=== PATIENT | male | born 1995 | race Caucasian/White ===

== ENCOUNTER 2016-06-27 21:31 | Emergency (ER) | payer BC, MEDICAID ==
[~2016-06-27] VITALS: Ht 165.1 cm; Wt 76.0 kg
[2016-06-27 21:36] VITALS: Ht 165.1 cm; Wt 76.0 kg
[2016-06-27] MEDS ORDERED: IBUP-1542 PO (22:30)
[2016-06-27] MEDS ORDERED: LORA-441 PO (22:30)
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
== END 2016-06-27 22:54 | disposition home or self-care (01) ==
LOC: FTE 21:31
DX: F41.9 Anxiety disorder, unspecified (principal); M79.605 Pain in left leg
CPT/HCPCS: 99283

== ENCOUNTER 2016-07-30 09:53 | Emergency (ER) | payer BC ==
[~2016-07-30] VITALS: Ht 172.7 cm; Wt 90.0 kg
[~2016-07-30 09:53] MED LIST: IBUP-1542 PO; LORA-441 PO
[2016-07-30] MEDS ORDERED: LEVETIRACETAM 1000 MG (PMX) 100 ML IVPB STA (09:55)
[2016-07-30] MEDS ORDERED: LORAZEPAM 2 MG INJ IV STA (09:55)
[2016-07-30 10:09] VITALS: Ht 172.7 cm; Wt 90.0 kg
[2016-07-30 10:16] LABS: ADD SCAN DIFF NO
[2016-07-30 10:21] LABS: BASOPHILS % 0.3 % (0.0-2.0); EOSINOPHILS % 0.3 % (0.0-7.0); HEMATOCRIT 49.7 % (42.0-52.0); HEMOGLOBIN 15.9 g/dl (14.0-18.0); LYMPHOCYTES # 2.4 10^3/ul (0.8-2.9); LYMPHOCYTES % 24.2 % (15.0-51.0); MEAN CORPUSCULAR HEMOGLOBIN 30.6 pg (29.0-33.0); MEAN CORPUSCULAR VOLUME 95.6 fl (82.0-101.0); MEAN PLATELET VOLUME 9.5 fl (7.4-10.4); MONOCYTE # 0.8 10^3/ul (0.3-0.9); MONOCYTES % 7.6 % (0.0-11.0); NEUTROPHIL # 6.6 10^3/ul (1.6-7.5); NEUTROPHILS % 67.1 % (39.0-77.0); PLATELET COUNT 369 10^3/UL (140-415); RED CELL DISTRIBUTION WIDTH 13.3 % (11.5-14.5); WHITE BLOOD COUNT 9.9 10^3/ul (4.8-10.8)
[2016-07-30 10:35] LABS: POTASSIUM 3.8 mmol/L (3.5-5.1)
[2016-07-30 10:37] LABS: CREATININE 0.8 mg/dl (0.61-1.24)
[2016-07-30 10:39] LABS: CALCIUM 10.2 mg/dl (8.4-10.2)
[2016-07-30] MEDS ORDERED: LEVE-5 PO (11:48)
--- NOTE | 2016-07-30 11:51 | ERD ---
ER Documentation Chief Complaint Date/Time DATE: 07/30/16 TIME: 11:50 Chief Complaint SEIZURE AT HOME WITNESSED BY FAMILY HPI This is a 23 mL incision at home witnessed by family. Patient has a history of one previous seizure. Not on any seizure medications. No bowel or bladder incontinence. No tongue biting. No other current issues ROS All systems reviewed and are negative except as per history of present illness. Medications Home Meds Active Scripts Levetiracetam* (Keppra*) 500 Mg Tablet, 500 MG PO BID, #30 TAB Prov:DHRUV NOE 07/30/16 Discontinued Scripts Lorazepam* (Ativan*) 0.5 Mg Tablet, 0.5 MG PO Q8H Y for ANXIETY, #10 TAB Prov:SIDRA HERNANDEZ CERTIFIED DRIVER EXAMINER 06/27/16 Ibuprofen* (Motrin*) 600 Mg Tab, 600 MG PO Q6H Y for PAIN AND OR ELEVATED TEMP, #30 TAB Prov:SIDRA HERNANDEZ CERTIFIED DRIVER EXAMINER 06/27/16 Allergies Allergies: Coded Allergies: No Known Allergy (Unverified , 07/30/16) PMhx/Soc Medical and Surgical Hx: pt denies Surgical Hx History of Surgery: No Anesthesia Reaction: No Hx Neurological Disorder: No Hx Respiratory Disorders: No Hx Cardiac Disorders: No Hx Psychiatric Problems: Yes (anxiety) Hx Miscellaneous Medical Probl: No Hx Alcohol Use: No Hx Substance Use: Yes (MARIJUANA USE DAILY) Hx Tobacco Use: No Smoking Status: Never smoker Physical Exam Vitals Vital Signs Date Time Temp Pulse Resp B/P Pulse Ox O2 Delivery O2 Flow Rate FiO2 07/30/16 10:09 99.8 102 18 137/75 97 Physical Exam Const: [] Head: Atraumatic Eyes: Normal Conjunctiva ENT: Normal External Ears, Nose and Mouth. Neck: Full range of motion..~ No meningismus. Resp: Clear to auscultation bilaterally Cardio: Regular rate and rhythm, no murmurs Abd: Soft, non tender, non distended. Normal bowel sounds Skin: No petechiae or rashes Back: No midline or flank tenderness Ext: No cyanosis, or edema Neur: Awake and alert Psych: Normal Mood and Affect Result Diagram: 07/30/16 1004 07/30/16 1004 Results 24 hrs Laboratory Tests Test 07/30/16 10:04 White Blood Count 9.910^3/ul Red Blood Count 5.2010^6/ul Hemoglobin 15.9g/dl Hematocrit 49.7% Mean Corpuscular Volume 95.6fl Mean Corpuscular Hemoglobin 30.6pg Mean Corpuscular Hemoglobin Concent 32.0g/dl Red Cell Distribution Width 13.3% Platelet Count 18606^3/UL Mean Platelet Volume 9.5fl Neutrophils % 67.1% Lymphocytes % 24.2% Monocytes % 7.6% Eosinophils % 0.3% Basophils % 0.3% Nucleated Red Blood Cells % 0.0/100WBC Neutrophils # 6.610^3/ul Lymphocytes # 2.410^3/ul Monocytes # 0.810^3/ul Eosinophils # 0.010^3/ul Basophils # 0.010^3/ul Nucleated Red Blood Cells # 0.010^3/ul Sodium Level 145mmol/L Potassium Level 3.8mmol/L Chloride Level 101mmol/L Carbon Dioxide Level 11mmol/L Anion Gap 37 Blood Urea Nitrogen 9mg/dl Creatinine 0.80mg/dl Glucose Level 171mg/dl Calcium Level 10.2mg/dl Current Medications Medications (Trade) Dose Ordered Sig/Jose Luis Route PRN Reason Start Time Stop Time Status Last Admin Dose Admin Lorazepam 1 mg 1 mg ONCE STAT IV 07/30/16 09:55 07/30/16 09:57 DC 07/30/16 10:08 Levetiracetam (Keppra 1,000mg/ 100ml (Pmx)) 100 ml @ 400 mls/hr ONCE STAT IVPB 07/30/16 09:55 07/30/16 10:09 DC 07/30/16 10:35 Procedures/MDM Medical [id number] male with recurrent seizure disorder. At this point clinically stable. Patient be discharged home with Keppra. No further seizure activity noted here. Told to return to ER immediately for any return of seizure-like activity. Departure Diagnosis: Primary Impression: Seizure disorder Condition: Stable Patient Instructions: Seizure, Recurrent [Adult] DHRUV NOE July 30, 2016 11:51
[2016-07-30 12:16] VITALS: BP 109/69; PULSE 87
== END 2016-07-30 12:19 | disposition home or self-care (01) ==
LOC: E/R 09:53
DX: G40.909 Epilepsy, unspecified, not intractable, without status epilepticus (principal); R40.2252 Coma scale, best verbal response, oriented, at arrival to emergency department; R40.2142 Coma scale, eyes open, spontaneous, at arrival to emergency department; R40.2362 Coma scale, best motor response, obeys commands, at arrival to emergency department
CPT/HCPCS: 36415; 80048; 85025; 96374; 96375; J1953; J2060; Z7502

== ENCOUNTER 2016-08-29 16:34 | Emergency (ER) | payer BC ==
[~2016-08-29] VITALS: Ht 165.1 cm; Wt 83.5 kg
[~2016-08-29 16:34] MED LIST changes: -IBUP-1542 PO; +LEVE-5 PO; -LORA-441 PO
[2016-08-29 16:36] VITALS: Ht 165.1 cm; Wt 83.5 kg
[2016-08-29] MEDS ORDERED: LEVE-5 PO (17:01)
[2016-08-29] MEDS ORDERED: HYDR25CA98 PO (17:01)
--- NOTE | 2016-08-29 17:17 | ERD ---
ER Documentation Chief Complaint Date/Time DATE: 08/29/16 TIME: 17:16 Chief Complaint Patient here for a medication refill did not follow up with MD referral HPI 20-year-old male with a history of seizure disorder comes to the emergency room for medication refill for Keppra as well as hydroxyzine. Patient states that he takes Keppra 500 mg twice a day, as well as hydroxyzine. Patient reports that he was seen here about a month ago and was being evaluated for seizure. He states that he has not had any recent seizures. He denies any loss consciousness, headache, fevers, chills. ROS All systems reviewed and are negative except as per history of present illness. Medications Home Meds Active Scripts Hydroxyzine Pamoate* (Hydroxyzine Pamoate*) 25 Mg Capsule, 25 MG PO TID, #90 CAP Prov:WILIAM MAIN PA-C 08/29/16 Levetiracetam* (Keppra*) 500 Mg Tablet, 500 MG PO BID, #60 TAB Prov:WILIAM MAIN PA-C 08/29/16 Levetiracetam* (Keppra*) 500 Mg Tablet, 500 MG PO BID, #30 TAB Prov:DHRUV NOE 07/30/16 Allergies Allergies: Coded Allergies: No Known Allergy (Unverified , 07/30/16) PMhx/Soc History of Surgery: No Anesthesia Reaction: No Hx Neurological Disorder: No Hx Respiratory Disorders: No Hx Cardiac Disorders: No Hx Psychiatric Problems: Yes (anxiety) Hx Miscellaneous Medical Probl: Yes (SEIZURE 04/2016) Hx Alcohol Use: No Hx Substance Use: No Hx Tobacco Use: No Physical Exam Vitals Vital Signs Date Time Temp Pulse Resp B/P Pulse Ox O2 Delivery O2 Flow Rate FiO2 08/29/16 16:36 99.7 111 20 122/66 98 Physical Exam General: Well-developed, well-nourished. The patient appears in no acute distress. HEENT: Head is normocephalic, atraumatic. No scleral icterus. Neck: Supple. Nontender. Lungs: Clear to auscultation. Normal air movement. Heart: Regular rate and rhythm. S1 and S2 are normal. No murmurs, gallops, or rubs. Abdomen: Soft, nontender, nondistended. Bowel sounds are normoactive. Extremities: No clubbing or cyanosis. Normal pulses. Moving extremities x 4. No weakness. Neurologic: Alert and oriented 3. No focal deficits. Cranial nerves II 12 grossly intact. Skin: Normal turgor. No rash or lesions. Procedures/MDM 20-year-old male comes to emergency room for seizure disorder, medication refill. I will refill his Keppra and hydroxyzine for 1 month however he was asked to follow-up with a neurologist. He was given strict restrictions, he is not to drive until he is cleared by neurologist. He was given information for follow-up. At this time he has not had any recent seizures, no altered mental status, no signs of meningitis, encephalitis. Departure Diagnosis: Primary Impression: Encounter for medication refill Additional Impression: Seizure disorder Condition: Good Patient Instructions: Taking Medicine Safely, Seizure, Recurrent [Child] Referrals: RACHAEL EDOUARD MD Additional Instructions: NEUROLOGY SPECIALIST: YOU HAVE A MEDICAL CONDITION WHICH REQUIRES YOU TO SEE A SPECIALIST WITHIN THE NEXT 1 WEEK. PLEASE FOLLOW UP WITH YOUR PRIMARY PHYSICIAN FOR REFFERAL.IF YOU DO NOT HAVE A PRIMARY CARE PHYSICIAN AND/OR YOU CAN NOT AFFORD TO SEE A PHYSICIAN THE FOLLOWING RESOURCES HAVE BEEN SUPPLIED TO YOU. IT IS YOUR RESPONSIBILITY TO BE SEEN BY THE SPECIALIST You have been instructed not to drive until you are cleared from a neurologist. WILIAM MAIN PA-C Aug 29, 2016 17:17
== END 2016-08-29 17:29 | disposition home or self-care (01) ==
LOC: FTE 16:34
DX: Z76.0 Encounter for issue of repeat prescription (principal); G40.909 Epilepsy, unspecified, not intractable, without status epilepticus
CPT/HCPCS: 99281

== ENCOUNTER 2017-01-30 18:04 | Emergency (ER) | payer BC, OTHER ==
[~2017-01-30] VITALS: Ht 170.2 cm; Wt 74.0 kg
[~2017-01-30 18:04] MED LIST changes: +HYDR25CA98 PO
[2017-01-30 18:07] VITALS: Ht 170.2 cm; Wt 74.0 kg
[2017-01-30] MEDS ORDERED: IBUPROFEN 600 MG TAB PO ONE (19:30)
[2017-01-30] MEDS ORDERED: DIPHTH/TET/ACEL PERTUSS (ADULT) 0.5 ML VIAL IM* ONE (19:30)
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
[2017-01-30] MEDS ORDERED: LEVE-5 PO (20:21)
[2017-01-30] MEDS ORDERED: AMOX1TAB10 PO (20:21)
[2017-01-30] MEDS ORDERED: LORA1TAB PO (20:21)
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
[2017-01-30 20:37] VITALS: BP 132/75; PULSE 80; RESP 18; TEMP 98.9
== END 2017-01-30 20:39 | disposition home or self-care (01) ==
LOC: FTE 18:04
DX: S60.511A Abrasion of right hand, initial encounter (principal); W50.3XXA Accidental bite by another person, initial encounter; Y92.9 Unspecified place or not applicable; Z23 Encounter for immunization
CPT/HCPCS: 73130; 90471; 90715; Z7502; Z7610

== ENCOUNTER 2018-07-08 02:01 | Emergency (ER) | payer OTHER ==
[~2018-07-08] VITALS: Ht 170.2 cm; Wt 90.9 kg
[~2018-07-08 02:01] MED LIST changes: +AMOX1TAB10 PO; +LORA1TAB PO
[2018-07-08 02:05] VITALS: Ht 170.2 cm; Wt 90.9 kg
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
[2018-07-08 03:28] VITALS: BP 130/87; PULSE 80; RESP 17
== END 2018-07-08 03:29 | disposition home or self-care (01) ==
LOC: E/R 02:01
DX: G40.909 Epilepsy, unspecified, not intractable, without status epilepticus (principal); R40.4 Transient alteration of awareness
CPT/HCPCS: 99282

== ENCOUNTER 2018-11-01 23:09 | Emergency (ER) | payer OTHER ==
[~2018-11-01] VITALS: Ht 167.6 cm; Wt 81.5 kg
[~2018-11-01 23:09] MED LIST changes: +LEVE500S8 PO
[2018-11-01 23:42] VITALS: Ht 167.6 cm; Wt 81.5 kg
[2018-11-02] MEDS ORDERED: LORAZEPAM 2 MG INJ IV ONE (01:30)
[2018-11-02] MEDS ORDERED: LEVETIRACETAM 500 MG (PMX) 100 ML IVPB ONE (01:30)
[2018-11-02 01:54] VITALS: BP 119/74; PULSE 89; RESP 22
== END 2018-11-02 02:13 | disposition home or self-care (01) ==
LOC: E/R 23:09
DX: G40.909 Epilepsy, unspecified, not intractable, without status epilepticus (principal)
CPT/HCPCS: 96374; 96375; J1953; J2060; Z7502